=== PATIENT | male | born 1945 | race Caucasian/White ===

== ENCOUNTER → 2018-03-31 10:50 | Outpatient (CLI) | payer OTHER, SELFPAY ==
--- NOTE | 2018-03-31 10:57 | DI.RAD.S_ITS ---
PROCEDURE: XR CERVICAL SPINE 2V OR 3V INDICATIONS: neck vanessa TECHNIQUE: 3 view(s) of the cervical spine were acquired. COMPARISON: [facility], MR, C-SPINE WITHOUT CONTRAST, 06/30/2010, 10:37. [facility], MR, C-SPINE WITHOUT CONTRAST, 09/22/2012, 18:02. [facility], MR, C-SPINE WITHOUT CONTRAST, 03/24/2013, 20:44. FINDINGS: Bones: No fractures or dislocations to the C7 level. The lateral masses of C1 appear intact on the odontoid view. No suspicious bony lesions. There is degenerative disc disease, moderate to severe at C3-C4, C5-C6 and C6-C7. Soft tissues: No prevertebral soft tissue swelling. IMPRESSION: Moderate to severe degenerative disc disease. Dictated by: Kwaku Haskins M.D. on 03/31/2018 at 22:08 Transcribed by: NICHO on 03/31/2018 at 22:10 Approved by: Kwaku Haskins M.D. on 04/01/2018 at 7:37
== END ==
PROVIDERS: Family Provider Family Medicine; PCP Family Medicine; Visit Provider Internal Medicine
DX: M50.31 Other cervical disc degeneration, high cervical region (principal)
CPT/HCPCS: 72040

== ENCOUNTER → 2018-05-13 16:12 | Outpatient (CLI) | payer OTHER, SELFPAY ==
--- NOTE | 2018-05-13 16:15 | DI.RAD.S_ITS ---
PROCEDURE: XR CHEST 2V INDICATIONS: Shortness of breath, cough TECHNIQUE: 2 views of the chest were acquired. COMPARISON: [facility], , CHEST 2 VIEW, 05/18/2013, 15:43. FINDINGS: Surgical changes and devices: Midline sternotomy wires noted. Lungs and pleura: No pleural effusions or pneumothorax. There is increased hazy opacification obscuring the right hemidiaphragm and projecting posteriorly over the spine on lateral view. Mediastinum: Mediastinal contours are normal. Heart size is normal. Bones and chest wall: No suspicious bony abnormalities. Soft tissues appear unremarkable. IMPRESSION: Focal right lower lobe pulmonary opacities concerning for pneumonia. Findings discussed with ordering provider MOISES Renee at 5:04 PM on 05/13/[address] Deleon. Dictated by: Abdoul Deleon M.D. on 05/13/2018 at 16:57 Approved by: Abdoul Deleon M.D. on 05/13/2018 at 17:05
== END ==
PROVIDERS: Family Provider Family Medicine; PCP Family Medicine; Visit Provider Physician Assistant
DX: R05 Cough (principal); R06.02 Shortness of breath
CPT/HCPCS: 71046

== ENCOUNTER → 2018-05-26 15:05 | Outpatient (CLI) | payer OTHER, SELFPAY ==
--- NOTE | 2018-05-26 15:07 | DI.RAD.S_ITS ---
PROCEDURE: XR CHEST 2V INDICATIONS: 72-year-old male with cough. TECHNIQUE: 2 views of the chest were acquired. COMPARISON: [facility], CR, XR CHEST 2V, 05/13/2018, 16:07. FINDINGS: Surgical changes and devices: Sternotomy. Lungs and pleura: No pleural effusions or pneumothorax. Lungs are clear. Mediastinum: Mediastinal contours are normal. Heart size is normal. Bones and chest wall: No suspicious bony abnormalities. Soft tissues appear unremarkable. IMPRESSION: No acute cardiopulmonary disease. Dictated by: Kwaku Haskins M.D. on 05/26/2018 at 16:35 Approved by: Kwaku Haskins M.D. on 05/26/2018 at 16:35
== END ==
PROVIDERS: Family Provider Family Medicine; PCP Family Medicine; Visit Provider Family Medicine
DX: R05 Cough (principal)
CPT/HCPCS: 71046

== ENCOUNTER 2018-08-26 09:43 | Day surgery (SDC) | payer OTHER, SELFPAY ==
[2018-08-26 10:12] VITALS: BP 121/76; PULSE 72; RESP 16; TEMP 36.2; O2SAT 97; BMI 25.7
[2018-08-26] MEDS: SODIUM CHLORIDE 0.9% 1,000 ML 200 ML IV (10:26)
--- NOTE | 2018-08-26 11:04 | PM.HP.1 ---
History of Present Illness Date Patient Seen: 08/26/18 Time Patient Seen: 11:00 Chief complaint: colonoscopy 60599 Narrative: Patient here for screening colonoscopy. Last exam 5 years ago. Sister with colon cancer. Patient History Surgical History History of aortic valve replacement (Resolved) Status post appendectomy (Resolved) Family & Social History Social History: household members spouse Tobacco & Substance use: Smoking Status Current every day smoker Meds Home Medications Medication Instructions Recorded Confirmed Type Fish Oil (#OMEGA-3 FISH OIL) 1,200 mg PO Q DAY #0 04/06/11 05/26/18 History Ranitidine Hydrochloride 150 mg PO QDAY #0 04/06/11 05/26/18 History (RANITIDINE) ibuprofen 200 mg PO PRN #0 04/06/11 05/26/18 History lisinopril [Prinivil] 20 mg PO BID #180 tab 10/25/17 05/26/18 Rx cholecalciferol (vitamin D3) 5,000 unit PO QDAY #0 11/22/17 05/26/18 History magnesium 200 mg PO QDAY #0 11/22/17 05/26/18 History methylsulfonylmethane [MSM] 1,000 mg PO QDAY #0 11/22/17 05/26/18 History metoprolol succinate [Toprol XL] 12.5 mg PO BID #0 11/22/17 05/26/18 History varenicline 0.5 mg (11)-1 mg (42) See Label Instructions PO PER PKG 05/26/18 Rx tablets in a dose pack DIR #1 each tamsulosin [Flomax] 0.4 mg PO HS #90 cap 07/11/18 Rx Allergies Allergy/AdvReac Type Severity Reaction Status Date / Time No Known Allergies Allergy Verified 08/26/18 08:34 amoxicillin [From Augmentin] AdvReac Mild red, Verified 05/26/18 14:45 burning tongue clavulanic acid AdvReac Mild red, Verified 05/26/18 14:45 [From Augmentin] burning tongue Review of Systems Review of Systems All systems reviewed & are unremarkable except as noted in HPI and below Cardiovascular Comments: Has a known murmur related to his valve. Exam Vital Signs (past 8 hours): - 08/26/18 10:12 Temperature 97.2 F L Pulse Rate 72 Respiratory Rate 16 Blood Pressure 121/76 Pulse Oximetry 97 Oxygen Delivery Method Room Air Narrative Exam Narrative: Operative no apparent distress. Lungs are clear to auscultation no rales or rhonchi heart regular rate and rhythm. Patient has a loud 3 of 6 systolic murmur heard throughout the precordium. Best heard left base. Abdomen is soft nontender without mass. Alert oriented x3. Assessment & Plan Plan: Assessment/Plan Narrative: For screening colonoscopy. I have discussed the procedure and the rationale with the patient including risks of bleeding, perforation which would necessitate a major operation, failure to find remove all lesions and the potential to tattoo. They appeared to understand and wished to proceed.
--- NOTE | 2018-08-26 11:06 | PM.PREOP ---
Pre-operative Note Interval Note Pre-op Check: Yes History & Physical exam performed today by Physician Changes: No ASA Class (for procedural sedation): III
--- NOTE | 2018-08-26 11:22 | SUR.OPER ---
2 X 4 INCH BRUISE NOTED ON PATIENTS LEFT POSTERIOR THIGH.
[2018-08-26] MEDS: MIDAZOLAM 5 MG/5 ML VIAL IV (11:27)
[2018-08-26] MEDS: fentaNYL 250 MCG/5 ML INJ IV (11:28)
[2018-08-26 11:42] VITALS: BP 145/65; PULSE 72; RESP 12; TEMP 36.7; O2SAT 100
--- NOTE | 2018-08-26 11:43 | PM.OP.ENDO ---
Operative Date/Time/Diagnoses Date of procedure: 08/26/18 Time of procedure: 11:43 Pre-op diagnosis: Screening examination. Last exam 5 years ago. Sister has a history of colon cancer. Post-op diagnosis: same (Sigmoid diverticulosis. Scarring on old hemorrhoids.) Procedure & Clinicians Study performed: Colonoscopy Same procedure as scheduled: Yes Indications: Screening. Surgeon: Sav Jackson Procedure Notes SCOAP/Timeout: Performed Procedure in detail: The patient was placed in the left lateral decubitus position and underwent IV sedation directed by the surgeon consisting of fentanyl and Versed. Digital exam was remarkable for slight decrease in sphincter tone. I could not feel his prostate well. The scope was inserted and advanced through the rectum into the sigmoid, descending, transverse, and ascending colon. Pressure was applied and we made our way into the cecum. The cecum was reached identified by the ileocecal valve and the appendiceal opening. The appendiceal opening contained stool. The scope was gradually brought out. No Polyps were found. The scope ultimately was retroflexed in the rectum. The appearance was remarkable for some scarring on in internal hemorrhoids that were rather small. The scope was removed and the patient tolerated the procedure well. Prep was good Scope withdrawal time: 10 min Sedation minutes: 25 Findings: diverticulosis (Sigmoid) and internal hemorrhoids (Small) Specimen(s): none sent Complications: none Recommendations: Colonscopy in 5 years (Due to family history of colon cancer) Follow up: as needed Disposition: PACU
[2018-08-26 11:46] VITALS: BP 146/79; PULSE 72; RESP 18; O2SAT 98
[2018-08-26 11:52] VITALS: BP 137/54; PULSE 72; RESP 18; O2SAT 98
[2018-08-26 11:57] VITALS: BP 129/70; PULSE 80; RESP 16; O2SAT 98
[2018-08-26 12:05] VITALS: BP 131/77; PULSE 65; RESP 16; TEMP 36.8; O2SAT 97
== END 2018-08-26 12:18 | disposition home or self-care (01) ==
PROVIDERS: Family Provider Family Medicine; PCP Family Medicine; Visit Provider Specialist
PROC: 0DJD8ZZ Inspection of Lower Intestinal Tract, Via Natural or Artificial Opening Endoscopic (ICD-10-PCS; CPT 45378; principal; 2018-08-26 10:45)
DX: Z12.11 Encounter for screening for malignant neoplasm of colon (principal); K57.30 Diverticulosis of large intestine without perforation or abscess without bleeding; F17.210 Nicotine dependence, cigarettes, uncomplicated; Z80.0 Family history of malignant neoplasm of digestive organs; K64.8 Other hemorrhoids
CPT/HCPCS: G0105; 99152; 99153; J2250; J3010

== ENCOUNTER → 2018-12-12 09:11 | Outpatient (CLI) | payer OTHER, SELFPAY ==
[2018-12-12 10:58] LABS: Hemoglobin A1C% w Est Avg Glu 5.3 % (4.0-6.0)
[2018-12-12 11:01] LABS: Add Manual Diff / Slide Review NO; Basophils Absolute Auto 0 /uL (0-100); Basophils Percent Auto 0.7 % (0-2); Eosinophils Absolute Auto 300 /uL (0-450); Eosinophils Percent Auto 6.2 % (2-4); Hematocrit 43.3 % (41-53); Hemoglobin 14.7 g/dL (13.5-17.5); Lymphocytes Absolute Auto 1700 /uL (1100-4500); Lymphocytes Percent Auto 36.5 % (25-40); Mean Corpuscular Hemoglobin 31.7 PG (26-34); Mean Corpuscular Volume 93.3 fL (80-100); Monocytes Absolute Auto 400 /uL (0-900); Monocytes Percent Auto 8.4 % (3-14); Neutrophils Absolute Auto 2300 /uL (1500-7000); Neutrophils Percent Auto 48.2 % (50-75); Platelet Count 180 X10^3/uL (150-400); Red Blood Cell Count 4.64 X10^6/uL (4.5-5.9); Red Cell Distribution Width 13.3 % (11.6-14.8); White Blood Cell Count 4.7 X10^3/uL (4.5-11.0)
[2018-12-12 11:02] LABS: Alanine Aminotransferase 38 IU/L (21-72); Albumin 4.4 g/dL (3.5-5.0); Albumin Globulin Ratio 1.6 (1.0-2.8); Alkaline Phosphatase 50 U/L (38-126); Aspartate Aminotransferase 30 IU/L (17-59); BUN Creatinine Ratio 21.1 (6-22); Bilirubin Total 0.4 mg/dL (0.2-1.3); Blood Urea Nitrogen 19 mg/dL (9-20); Calcium 9.4 mg/dL (8.4-10.2); Carbon Dioxide 31 mmol/L (22-32); Chloride 101 mmol/L (98-107); Cholesterol 200 mg/dL (140-199); Estimated Glomerular Filt Rate > 60.0 mL/min (>60); Globulin 2.7 g/dL (1.7-4.1); Glucose 94 mg/dL (80-110); HDL Cholesterol 56 mg/dL (40-60); HEMOLYSIS < 15 (0-50); LDL Cholesterol Calculated 121 mg/dL (<100); Potassium 4.4 mmol/L (3.4-5.1); Sodium 140 mmol/L (137-145); Total Protein 7.1 g/dL (6.3-8.2); Triglycerides 115 mg/dL (35-150)
[2018-12-12 11:26] LABS: Prostate Specific Antigen Scrn 0.516 ng/mL (0.1-4.0)
[2018-12-12 11:47] LABS: Thyroid Stimulating Hormone 1.16 uIU/mL (0.47-4.68)
[2018-12-12 11:57] LABS: Creatinine Urine Random 113.6 mg/dL
[2018-12-12 12:02] LABS: Microalbumi Creatinin Ratio Ur 8.8 ug/mg CR (<30)
== END ==
PROVIDERS: PCP Family Medicine; Visit Provider Family Medicine
DX: E78.5 Hyperlipidemia, unspecified (principal); I10 Essential (primary) hypertension; R73.09 Other abnormal glucose; R89.9 Unspecified abnormal finding in specimens from other organs, systems and tissues; Z12.5 Encounter for screening for malignant neoplasm of prostate; Z13.29 Encounter for screening for other suspected endocrine disorder
CPT/HCPCS: 36415; 80053; 80061; 82043; 82570; 83036; 84443; 85025; G0103

== ENCOUNTER → 2019-06-15 14:50 | Outpatient (CLI) | payer OTHER, SELFPAY ==
[2019-06-15 15:59] LABS: Blood Urea Nitrogen 18 mg/dL (9-20); Calcium 9.4 mg/dL (8.4-10.2); Carbon Dioxide 26 mmol/L (22-32); Chloride 104 mmol/L (98-107); Estimated Glomerular Filt Rate > 60.0 mL/min (>60); Glucose 93 mg/dL (80-110); HEMOLYSIS < 15 (0-50); Potassium 4.4 mmol/L (3.4-5.1); Sodium 140 mmol/L (137-145)
== END ==
PROVIDERS: PCP Family Medicine; Visit Provider Internal Medicine Cardiovascular Disease
DX: I77.810 Thoracic aortic ectasia (principal); I10 Essential (primary) hypertension
CPT/HCPCS: 36415; 80048

== ENCOUNTER → 2019-06-16 10:41 | Outpatient (CLI) | payer OTHER, SELFPAY ==
--- NOTE | 2019-06-16 10:56 | DI.CT.S_ITS ---
PROCEDURE: CT ANGIO CHEST ABDOMEN INDICATIONS: Thoracic aortic ectasia TECHNIQUE: Precontrast 5 mm thick sections acquired from the lung apices to the iliac crests. After the administration of intravenous contrast, 2.5 mm thick sections again acquired from the lung apices to the iliac crests. 10 mm maximum intensity projection (MIP) oblique sagittal and coronal reformats were then acquired. For radiation dose reduction, the following was used: automated exposure control. COMPARISON: [facility], CT, ANGIOGRAPHY CHEST AND ABDOMEN, 09/18/2016, 14:46. FINDINGS: Image quality: Excellent. AORTA: The sinuses of Valsalva measure 37 mm short axis (normal range 25-45 mm). The sinotubular junction measures 35 mm short axis (normal range 22-38 mm). The mid ascending thoracic aorta measures 50 mm short axis (normal range 23-43 mm). The proximal aortic arch measures 40 mm short axis. The distal aortic arch measures 34 mm short axis. The proximal descending thoracic aorta measures 34 mm short axis. The distal descending thoracic aorta measures 31 mm short axis. The thoracoabdominal aorta at the diaphragmatic hiatus measures 28 mm short axis . The perirenal abdominal aorta and measures 25 mm short axis . The mid infrarenal abdominal aorta measures 25 mm short axis . The distal abdominal aorta measures 20 mm short axis. There is no evidence of aortic dissection nor significant stenosis. No evidence of intramural hematoma. CHEST: Lungs and pleura: No acute airspace opacities. Right posterior lung base scarring is present, as before. No change in 5 mm diameter subpleural nodule within the left upper lobe posteriorly. Subsegmental atelectasis within the inferolateral lingula. No pleural effusions or pneumothorax. Central and peripheral airways are patent and normal in caliber. Mediastinum: Heart size is normal. No pericardial effusion. No mediastinal or hilar adenopathy by size criteria. Central pulmonary arteries are normal in size. Esophagus is normal in caliber. No hiatal hernias. Bones and chest wall: Median sternotomy. No axillary adenopathy by size criteria. Thyroid gland is within normal limits. No suspicious bony lesions. No vertebral body compression fractures. ABDOMEN: Vasculature: Celiac trunk and mesenteric arteries are patent. Renal arteries are also patent. Solid organs: Liver is normal in size and enhancement. Gallbladder is within normal limits. Biliary system is non dilated. Pancreas enhances normally. Spleen is normal in size and enhancement. No adrenal nodules. Both kidneys are normal in size and enhancement, without hydronephrosis. Peritoneum and bowel: No free fluid or air. Bowel loops are normal in caliber and wall thickness. Nodes and vessels: No retroperitoneal or mesenteric adenopathy by size criteria. Inferior vena cava is normal in morphology. Bones: No suspicious bony lesions. No vertebral body compression fractures. Miscellaneous: No ventral hernias. IMPRESSION: 1. 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 2. No change in small subpleural nodule in the left upper lobe. Dictated by: Layne Martin M.D. on 06/16/2019 at 11:51 Approved by: Layne Martin M.D. on 06/16/2019 at 11:57
== END ==
PROVIDERS: Family Provider Family Medicine; PCP Family Medicine; Visit Provider Internal Medicine Cardiovascular Disease
DX: I77.810 Thoracic aortic ectasia (principal)
CPT/HCPCS: 71275; 74175; Q9967

== ENCOUNTER → 2019-09-04 09:45 | Outpatient (CLI) | payer OTHER, SELFPAY ==
[2019-09-04 10:45] LABS: Alanine Aminotransferase 34 IU/L (<50); Albumin 4.2 g/dL (3.5-5.0); Albumin Globulin Ratio 1.5 (1.0-2.8); Alkaline Phosphatase 56 U/L (38-126); Aspartate Aminotransferase 29 IU/L (17-59); BUN Creatinine Ratio 18.2 (6-22); Bilirubin Total 0.5 mg/dL (0.2-1.3); Blood Urea Nitrogen 20 mg/dL (9-20); Calcium 9.2 mg/dL (8.4-10.2); Carbon Dioxide 29 mmol/L (22-32); Chloride 106 mmol/L (98-107); Estimated Glomerular Filt Rate > 60.0 mL/min (>60); Globulin 2.8 g/dL (1.7-4.1); Glucose 107 mg/dL (80-110); HEMOLYSIS < 15 (0-50); Potassium 4.3 mmol/L (3.4-5.1); Sodium 141 mmol/L (137-145)
[2019-09-04 10:50] LABS: B Type Natriuretic Peptide 130 (<100)
[2019-09-04 13:16] LABS: Add Manual Diff / Slide Review NO; Basophils Absolute Auto 0 /uL (0-100); Basophils Percent Auto 0.4 % (0-2); Eosinophils Absolute Auto 300 /uL (0-450); Eosinophils Percent Auto 3.5 % (2-4); Hematocrit 42.1 % (41-53); Hemoglobin 14.6 g/dL (13.5-17.5); Lymphocytes Absolute Auto 1500 /uL (1100-4500); Lymphocytes Percent Auto 16.6 % (25-40); Mean Corpuscular HGB Conc 34.8 % (30-36); Mean Corpuscular Hemoglobin 32.4 PG (26-34); Mean Corpuscular Volume 93.3 fL (80-100); Monocytes Absolute Auto 1000 /uL (0-900); Monocytes Percent Auto 11.7 % (3-14); Neutrophils Absolute Auto 6100 /uL (1500-7000); Neutrophils Percent Auto 67.8 % (50-75); Platelet Count 174 X10^3/uL (150-400); Red Blood Cell Count 4.51 X10^6/uL (4.5-5.9); White Blood Cell Count 8.9 X10^3/uL (4.5-11.0)
== END ==
PROVIDERS: PCP Family Medicine; Visit Provider Family Medicine
DX: R06.02 Shortness of breath (principal); R60.9 Edema, unspecified; R07.2 Precordial pain
CPT/HCPCS: 36415; 80053; 83880; 85025

== ENCOUNTER → 2019-09-22 14:39 | Outpatient (CLI) | payer OTHER, SELFPAY ==
--- NOTE | 2019-09-22 14:40 | DI.ECHO.S_ITS ---
[place] +---------+ [facility] +---------+ : : [address] : : : : [id number] : : : : Phone: [phone]+ Echocardiogram Report + + :Name: SUMAN GARCIA Study Date: 09/22/2019 Height: 70.5 in: :[facility] Weight: 206 lb : : Gender: Male BSA: 2.1 m2 : :: 1945 Age: 74 yrs BP: 136/74 mmHg: :Reason For Study: SOB : :Ordering Physician: Dr. Humphrey : :[place] Performed By: Khushbu Savage : + + Interpretation Summary The left ventricle is normal in size. Left ventricular ejection fraction is estimated to be 70 +/- 5%. The right ventricle is normal in size and function. There is mild to moderate mitral regurgitation. Compared to the prior echo study, there has been no change in the severity of mitral regurgitation. There is a bioprosthetic aortic valve. The prosthetic aortic valve is well-seated. The peak aortic velocity is 3.4 m/sec. The aortic valve mean gradient is 25 mmHg. The peak aortic velocity on the previous exam was 3.02 m/sec. There is mild to moderate aortic regurgitation. Compared to the prior echo study, there has been no change in the severity of aortic regurgitation. The ascending aorta is severely enlarged. 5.0 cm in diameter.In January 05, 2019, ascending aortic diameter was 5.1 cm. In April 2016 it was 4.9 cm. Procedure: A two-dimensional transthoracic echocardiogram with color flow and Doppler was performed. The study quality was technically adequate. Comparison is made with the echocardiogram of 01/05/2019. The patient was in sinus bradycardia with heart rates between 53-65 bpm during the exam. The patient had frequent PACs during the exam. Left Ventricle: The left ventricle is normal in size. Left ventricular wall thickness is mildly increased. Proximal septal thickening is noted. There is no echo evidence for significant left ventricular outflow tract obstruction. There is no thrombus. Left ventricular ejection fraction is estimated to be 70 +/- 5%. There are no focal wall motion abnormalities. Diastolic parameters suggest a relaxation abnormality of the left ventricle, consistent with probable normal filling pressures. Right Ventricle: The right ventricle is normal in size and function. Atria: The left atrium is severely dilated. The left atrium has remained unchanged in size since the prior echo exam. The right atrium is mildly dilated. There is no Doppler evidence for an interatrial shunt. Mitral Valve: The mitral valve leaflets appear mildly thickened, but open well. There is mild mitral annular calcification. The mitral valve chordae are thickened and/or calcified. The mitral valve leaflets are mildly calcified. There is no mitral valve stenosis. There is mild to moderate mitral regurgitation. Compared to the prior echo study, there has been no change in the severity of mitral regurgitation. Aortic Valve: There is a bioprosthetic aortic valve. The prosthetic aortic valve is not well visualized. The prosthetic aortic valve is well-seated. The peak aortic velocity is 3.4 m/sec. The aortic valve mean gradient is 25 mmHg. The peak aortic velocity on the previous exam was 3.02 m/sec. There is mild to moderate aortic regurgitation. Compared to the prior echo study, there has been no change in the severity of aortic regurgitation. Tricuspid Valve: The tricuspid valve is normal in structure and function. There is a trace or physiologic amount of tricuspid regurgitation. The right ventricular systolic pressure is estimated to be at least 22 mmHg based on an estimated right atrial pressure of 3 mm Hg. Pulmonic Valve: The pulmonic valve is not well seen, but is grossly normal. There is a trace or physiologic amount of pulmonic regurgitation. Great Vessels: The ascending aorta is severely enlarged. The aortic arch could not be visualized. The IVC is of normal diameter and collapses greater than 50% with a sniff. This suggests a low right atrial pressure of 3 mm Hg. Pericardium/ Pleura There is no pericardial effusion. MMode/2D Measurements & Calculations LVIDd: 4.9 cm LVOT diam: 2.4 cm LVIDs: 2.7 cm asc Aorta Diam: 5.0 cm FS: 43.3 % EPSS: 0.60 cm IVSd: 0.98 cm LVPWd: 1.1 cm LV pagan. diameter/BSA (cm/m^2): 2.3 LV sys. diameter/BSA (cm/m^2): 1.3 LA A2 area: 27.1 cm2 RA long axis: 6.5 cm LA A4 area: 27.4 cm2 RA area: 24.1 cm2 LA length (vol): 6.1 cm RA vol: 75.8 ml LA vol: 103.4 ml RA : 35.7 ml/m2 LA vol index: 48.7 ml/m2 IVC diam: 1.4 cm RVD1 (basal): 3.1 cm RVD2 (mid): 2.3 cm TAPSE: 2.2 cm Doppler Measurements & Calculations Ao V2 max: 339.0 cm/sec AI P1/2t: 741.4 msec Ao V2 mean: 238.6 cm/sec AI dec slope: 152.7 cm/sec2 Ao max P.0 mmHg Ao mean P.9 mmHg Ao V2 VTI: 67.5 cm MV E max angel: 60.0 cm/sec TR max angel: 220.3 cm/sec MV A max angel: 68.4 cm/sec TR max P.4 mmHg MV E/A: 0.88 PA V2 max: 91.6 cm/sec Med Peak E' Angel: 6.0 cm/sec PA V2 mean: 59.5 cm/sec E/E' med: 10.0 PA mean P.7 mmHg Lat Peak E' Angel: 9.3 cm/sec PA Accel Time: 0.11 sec E/E' lat: 6.5 E/e' average: 8.2 MV dec time: 0.29 sec MV P1/2t: 84.1 msec MV P1/2t max angel: 60.1 cm/sec MVA(P1/2t): 2.6 cm2 Reading Physician:05:06 PM
== END ==
PROVIDERS: PCP Family Medicine; Visit Provider Family Medicine
DX: I08.0 Rheumatic disorders of both mitral and aortic valves (principal); I77.89 Other specified disorders of arteries and arterioles; R06.02 Shortness of breath; R07.2 Precordial pain; R60.9 Edema, unspecified; Z95.2 Presence of prosthetic heart valve
CPT/HCPCS: 93306

== ENCOUNTER → 2020-02-12 11:06 | Outpatient (CLI) | payer OTHER, SELFPAY ==
[2020-02-12 13:49] LABS: NT-proBNP (BNP-Adult 18+) 230 pg/mL (<125)
== END ==
PROVIDERS: PCP Family Medicine; Referring Provider Family Medicine; Visit Provider Family Medicine
DX: R06.02 Shortness of breath (principal); R60.9 Edema, unspecified
CPT/HCPCS: 36415; 83880

== ENCOUNTER → 2020-08-29 08:46 | Outpatient (CLI) | payer OTHER, SELFPAY ==
[2020-08-29 09:58] LABS: Add Manual Diff / Slide Review NO; Basophils Absolute Auto 100 /uL (0-100); Basophils Percent Auto 1.1 % (0-2); Eosinophils Absolute Auto 200 /uL (0-450); Eosinophils Percent Auto 4.2 % (2-4); Hemoglobin 14.6 g/dL (13.5-17.5); Lymphocytes Absolute Auto 1300 /uL (1100-4500); Lymphocytes Percent Auto 26.6 % (25-40); Mean Corpuscular HGB Conc 33.9 % (30-36); Mean Corpuscular Volume 94.4 fL (80-100); Monocytes Absolute Auto 500 /uL (0-900); Monocytes Percent Auto 9.5 % (3-14); Neutrophils Absolute Auto 2800 /uL (1500-7000); Neutrophils Percent Auto 58.6 % (50-75); Platelet Count 154 X10^3/uL (150-400); Red Blood Cell Count 4.55 X10^6/uL (4.5-5.9); Red Cell Distribution Width 13.1 % (11.6-14.8); White Blood Cell Count 4.8 X10^3/uL (4.5-11.0)
[2020-08-29 10:32] LABS: Alanine Aminotransferase 39 IU/L (<50); Albumin 4.1 g/dL (3.5-5.0); Albumin Globulin Ratio 1.6 (1.0-2.8); Alkaline Phosphatase 39 U/L (38-126); Aspartate Aminotransferase 36 IU/L (17-59); BUN Creatinine Ratio 22.5 (6-22); Bilirubin Total 0.7 mg/dL (0.2-1.3); Blood Urea Nitrogen 20 mg/dL (9-20); Calcium 9.1 mg/dL (8.4-10.2); Carbon Dioxide 27 mmol/L (22-32); Chloride 107 mmol/L (98-107); Cholesterol 189 mg/dL (140-199); Estimated Glomerular Filt Rate > 60.0 mL/min (>60); Globulin 2.5 g/dL (1.7-4.1); Glucose 106 mg/dL (80-110); HDL Cholesterol 63 mg/dL (40-60); HEMOLYSIS < 15 (0-50); LDL Cholesterol Calculated 103 mg/dL (<100); Potassium 4.7 mmol/L (3.4-5.1); Sodium 139 mmol/L (137-145); Total Protein 6.6 g/dL (6.3-8.2); Triglycerides 115 mg/dL (35-150)
[2020-08-29 11:00] LABS: Prostate Specific Antigen Scrn 0.496 ng/mL (0.1-4.0)
== END ==
PROVIDERS: PCP Family Medicine; Referring Provider Family Medicine; Visit Provider Family Medicine
DX: I10 Essential (primary) hypertension (principal); I50.9 Heart failure, unspecified; Z12.5 Encounter for screening for malignant neoplasm of prostate; Z13.220 Encounter for screening for lipoid disorders; Z13.6 Encounter for screening for cardiovascular disorders
CPT/HCPCS: 36415; 80053; 80061; 85025; G0103

== ENCOUNTER → 2020-10-28 13:30 | Outpatient (CLI) | payer OTHER, SELFPAY ==
--- NOTE | 2020-10-28 14:50 | DI.RAD.S_ITS ---
PROCEDURE: XR KUB INDICATIONS: Right flank pain r/o renal calculi TECHNIQUE: One view of the abdomen acquired. COMPARISON: [facility] [place], CR, XR LUMBAR SPINE 2 OR 3 VIEWS, 07/04/2018, 13:37. [facility], CT, CT ANGIO CHEST ABDOMEN, 06/16/2019, 10:49. FINDINGS: Surgical changes and devices: Stable spine fixation devices on the right and at the midline are again noted. No sign of device loosening or disruption.. Bowel: Bowel gas pattern is normal. Soft tissues: No suspicious abdominal calcifications. Visualized solid organ contours appear normal in size. Bones: No suspicious bony lesions. IMPRESSION: Postoperative changes of the spine stabilization procedure are stable over time. No urinary tract stone is found. Dictated by: Faizan Grimes M.D. on 10/28/2020 at 16:33 Approved by: Faizan Grimes M.D. on 10/28/2020 at 16:34
[2020-10-28 15:22] LABS: Add Manual Diff / Slide Review NO; Basophils Absolute Auto 100 /uL (0-100); Basophils Percent Auto 0.8 % (0-2); Eosinophils Absolute Auto 200 /uL (0-450); Hematocrit 44.9 % (41-53); Hemoglobin 15.3 g/dL (13.5-17.5); Lymphocytes Absolute Auto 2000 /uL (1100-4500); Lymphocytes Percent Auto 28.9 % (25-40); Mean Corpuscular Volume 94.2 fL (80-100); Monocytes Absolute Auto 500 /uL (0-900); Monocytes Percent Auto 7.3 % (3-14); Neutrophils Absolute Auto 4000 /uL (1500-7000); Platelet Count 155 X10^3/uL (150-400); Red Blood Cell Count 4.77 X10^6/uL (4.5-5.9); Red Cell Distribution Width 12.9 % (11.6-14.8); White Blood Cell Count 6.8 X10^3/uL (4.5-11.0)
[2020-10-28 15:34] LABS: Alanine Aminotransferase 61 IU/L (<50); Albumin 4.5 g/dL (3.5-5.0); Albumin Globulin Ratio 1.6 (1.0-2.8); Alkaline Phosphatase 42 U/L (38-126); Aspartate Aminotransferase 58 IU/L (17-59); BUN Creatinine Ratio 20.4 (6-22); Bilirubin Total 0.6 mg/dL (0.2-1.3); Blood Urea Nitrogen 21 mg/dL (9-20); Calcium 9.4 mg/dL (8.4-10.2); Carbon Dioxide 31 mmol/L (22-32); Chloride 101 mmol/L (98-107); Estimated Glomerular Filt Rate > 60.0 mL/min (>60); Globulin 2.9 g/dL (1.7-4.1); Glucose 98 mg/dL (80-110); HEMOLYSIS < 15 (0-50); Lipase 46 U/L (23-300); Potassium 4.9 mmol/L (3.4-5.1); Sodium 137 mmol/L (137-145); Total Protein 7.4 g/dL (6.3-8.2)
== END ==
PROVIDERS: PCP Family Medicine; Visit Provider Nurse Practitioner
DX: N34.3 Urethral syndrome, unspecified (principal); R10.9 Unspecified abdominal pain
CPT/HCPCS: 36415; 74018; 80053; 83690; 85025; 87086

== ENCOUNTER → 2020-12-23 15:48 | Outpatient (CLI) | payer OTHER, SELFPAY ==
--- NOTE | 2020-12-23 15:49 | DI.RAD.S_ITS ---
PROCEDURE: XR CHEST 2V INDICATIONS: dyspnea TECHNIQUE: 2 views of the chest were acquired. COMPARISON: [facility], CR, XR CHEST 2V, 05/26/2018, 14:46. FINDINGS: Surgical changes and devices: Sternotomy wires Scattered subsegmental atelectasis and/or scarring. No focal consolidation. No pleural effusions or pneumothorax. Mediastinum: Mediastinal contours are normal. Heart size is normal. Bones and chest wall: No suspicious bony abnormalities. Soft tissues appear unremarkable. IMPRESSION: No acute disease. Dictated by: Todd Estrada M.D. on 12/23/2020 at 16:55 Approved by: Todd Estrada M.D. on 12/23/2020 at 16:55
== END ==
PROVIDERS: PCP Internal Medicine; Referring Provider Internal Medicine; Visit Provider Internal Medicine
DX: J44.9 Chronic obstructive pulmonary disease, unspecified (principal); R06.00 Dyspnea, unspecified
CPT/HCPCS: 71046

== ENCOUNTER → 2021-01-03 12:53 | Outpatient (CLI) | payer OTHER, SELFPAY ==
--- NOTE | 2021-01-03 12:59 | DI.ECHO.S_ITS ---
[place] +---------+ Hospital +---------+ : : [address] : [address] : : : : [id number] : : : : Phone: [phone]+ Echocardiogram Report + + :Name: SUMAN GARCIA Study Date: 01/03/2021 Height: 70 in : :[facility] : Weight: 205 lb : : Gender: Male BSA: 2.1 m2 : :: 1945 Age: 75 yrs BP: 168/78 mmHg: :Reason For Study: Aortic, Ascending Aneurysm : :Ordering Physician: Connie : :Giulinaa Caldwlel Performed By: Dragan Urbano : :Referring: CONNIE CALDWELL : + + Interpretation Summary The left ventricle is normal in size. There is mild concentric left ventricular hypertrophy. Left ventricular ejection fraction is estimated to be 70 +/- 5%. There has been no significant change in LV EF since the previous exam. The right ventricle is normal in size and function. There is a bioprosthetic aortic valve. The prosthetic aortic valve is well-seated. The peak aortic velocity is 3.42 m/sec. The peak aortic velocity on the previous exam was 3.4 m/sec. The aortic valve mean gradient is 24.5 mmHg. There is moderate aortic regurgitation. There has been no significant change since the previous study. The ascending aorta is severely enlarged. 4.9 cm in diameter. In September 2019 it was about 5.0 cm.In January 05, 2019, ascending aortic diameter was 5.1 cm. In April 2016 it was 4.9 cm. The IVC is of normal diameter and collapses greater than 50% with a sniff. This suggests a low right atrial pressure of 3 mm Hg. Procedure: A two-dimensional transthoracic echocardiogram with color flow and Doppler was performed. The study quality was technically adequate. Comparison is made with the echocardiogram of 09/22/2019. The patient was in sinus rhythm with heart rates between 53-57 bpm during the exam. Left Ventricle: The left ventricle is normal in size. There is mild concentric left ventricular hypertrophy. There is no thrombus. Left ventricular ejection fraction is estimated to be 70 +/- 5%. There has been no significant change since the previous exam. There are no focal wall motion abnormalities. MV E/A: 2.9 Med Peak E' Angel: 7.1 cm/sec E/E' med: 15.1. Right Ventricle: The right ventricle is normal in size and function. Atria: The left atrium is severely dilated. The left atrium has remained unchanged in size since the prior echo exam. The right atrium is mildly dilated. There is no Doppler evidence for an interatrial shunt. Mitral Valve: There is mild mitral annular calcification. The mitral valve leaflets are mildly calcified. The mitral valve leaflets appear mildly thickened, but open well. There is mild mitral regurgitation. Aortic Valve: There is a bioprosthetic aortic valve. The prosthetic aortic valve is well-seated. The peak aortic velocity is 3.42 m/sec. The peak aortic velocity on the previous exam was 3.4 m/sec. The aortic valve mean gradient is 24.5 mmHg. There is moderate aortic regurgitation. There has been no significant change since the previous study. Tricuspid Valve: The tricuspid valve is normal. Pulmonary artery pressures cannot be estimated because of the lack of a measurable TR jet velocity but the IVC suggests a CVP of around 3 mmHg. There is trace tricuspid regurgitation. Pulmonic Valve: The pulmonic valve is not well seen, but is grossly normal. There is trace pulmonic regurgitation. Great Vessels: The aortic root is not well visualized. The ascending aorta is severely enlarged. The IVC is of normal diameter and collapses greater than 50% with a sniff. This suggests a low right atrial pressure of 3 mm Hg. Pericardium/ Pleura There is no pericardial effusion. There is no pleural effusion. MMode/2D Measurements & Calculations LVIDd: 5.4 cm asc Aorta Diam: 4.9 cm LVIDs: 3.3 cm FS: 39.8 % IVSd: 1.2 cm LVPWd: 1.2 cm LV pagna. diameter/BSA (cm/m^2): 2.6 LV sys. diameter/BSA (cm/m^2): 1.5 LA A2 area: 26.8 cm2 RA area: 21.1 cm2 LA A4 area: 27.3 cm2 IVC diam: 2.1 cm LA length (vol): 6.4 cm LA vol: 97.6 ml LA vol index: 46.3 ml/m2 RVD1 (basal): 3.3 cm TAPSE: 1.9 cm Doppler Measurements & Calculations Ao V2 max: 342.2 cm/sec LVOT Max Angel: 115.0 cm/sec Ao V2 mean: 230.3 cm/sec LV V1 max P.3 mmHg Ao max P.9 mmHg LV V1 VTI: 29.2 cm Ao mean P.5 mmHg sev ratio: 0.38 Ao V2 VTI: 77.6 cm AI P1/2t: 460.7 msec AI dec slope: 263.4 cm/sec2 MV E max angel: 107.6 cm/sec PA V2 max: 87.2 cm/sec MV A max angel: 36.6 cm/sec PA V2 mean: 65.0 cm/sec MV E/A: 2.9 PA mean P.8 mmHg Med Peak E' Angel: 7.1 cm/sec PA pr(Accel): 37.0 mmHg E/E' med: 15.1 Lat Peak E' Angel: 10.1 cm/sec E/E' lat: 10.7 E/e' average: 12.9 MV dec time: 0.19 sec Reading Physician:03:15 PM
== END ==
PROVIDERS: PCP Internal Medicine; Referring Provider Internal Medicine Cardiovascular Disease; Visit Provider Internal Medicine Cardiovascular Disease
DX: I77.810 Thoracic aortic ectasia (principal); I08.0 Rheumatic disorders of both mitral and aortic valves; Z95.2 Presence of prosthetic heart valve
CPT/HCPCS: 93306

== ENCOUNTER → 2021-01-09 12:53 | Outpatient (CLI) | payer OTHER, SELFPAY ==
[2021-01-09 14:27] LABS: COVID19 -Nasal RAPID Negative (Negative)
== END ==
PROVIDERS: PCP Internal Medicine; Referring Provider Internal Medicine; Visit Provider Internal Medicine
DX: Z20.822 Contact with and (suspected) exposure to COVID-19 (principal)
CPT/HCPCS: 87635; C9803

== ENCOUNTER → 2021-01-10 12:58 | Outpatient (CLI) | payer OTHER, SELFPAY ==
--- NOTE | 2021-01-15 09:06 | PM.PFT.1 ---
Pulmonary Function Test Referral & Results Date Patient Seen: 01/10/21 Requesting provider: David Maldonado Results: The spirometry demonstrates an FVC of 3.02 L which is 60% of predicted. The FEV1 was measured at 1.80 L which is 55% of predicted. The FEV1/FVC ratio was 59 which is 81% of predicted. Following the administration of bronchodilator there was a 26% improvement in FEF 25-75%. Lung volumes show an SVC of 3.39 L which is 73% of predicted. The diffusing capacity was measured at 23.30 which is 69% of predicted. No hemoglobin value was provided, so no correction for potential anemia could be made, if appropriate. The maximum voluntary ventilation was reduced slightly Interpretation: This study demonstrates moderate obstructive lung disease based on reduction FEV1 although FEV1/FVC ratio is somewhat preserved. There is minimal evidence of benefit following bronchodilator primarily in small airway flow based on improvement in FEF 25-75% as above. Shape of flow volume loop also supports obstructive lung disease There is minimal reduction in lung volumes suggesting minimal restrictive lung disease There is also a reduction diffusing capacity suggesting element of disease at the capillary alveolar level unless patient is anemic as above Clinical correlation suggested
== END ==
PROVIDERS: PCP Internal Medicine; Referring Provider Internal Medicine; Visit Provider Internal Medicine
DX: R06.02 Shortness of breath (principal); J98.8 Other specified respiratory disorders; Z87.891 Personal history of nicotine dependence
CPT/HCPCS: 94060; 94726; 94729

== ENCOUNTER → 2021-02-13 08:14 | Outpatient (CLI) | payer OTHER, SELFPAY ==
[2021-02-13 09:37] LABS: Alanine Aminotransferase 54 IU/L (<50); Albumin 4.3 g/dL (3.5-5.0); Albumin Globulin Ratio 1.7 (1.0-2.8); Alkaline Phosphatase 40 U/L (38-126); Aspartate Aminotransferase 45 IU/L (17-59); Bilirubin Total 0.3 mg/dL (0.2-1.3); Blood Urea Nitrogen 25 mg/dL (9-20); Calcium 9.3 mg/dL (8.4-10.2); Carbon Dioxide 29 mmol/L (22-32); Chloride 103 mmol/L (98-107); Cholesterol 210 mg/dL (140-199); Estimated Glomerular Filt Rate > 60.0 mL/min (>60); Globulin 2.6 g/dL (1.7-4.1); Glucose 106 mg/dL (80-110); HDL Cholesterol 56 mg/dL (40-60); HEMOLYSIS < 15 (0-50); LDL Cholesterol Calculated 129 mg/dL (<100); Potassium 4.8 mmol/L (3.4-5.1); Sodium 138 mmol/L (137-145); Total Protein 6.9 g/dL (6.3-8.2); Triglycerides 126 mg/dL (35-150)
== END ==
PROVIDERS: PCP Internal Medicine; Referring Provider Internal Medicine Cardiovascular Disease; Visit Provider Internal Medicine Cardiovascular Disease
DX: I10 Essential (primary) hypertension (principal)
CPT/HCPCS: 36415; 80053; 80061

== ENCOUNTER → 2021-05-14 08:03 | Outpatient (CLI) | payer OTHER, SELFPAY ==
[2021-05-14 09:05] LABS: Cholesterol 194 mg/dL (140-199); HDL Cholesterol 55 mg/dL (40-60); LDL Cholesterol Calculated 118 mg/dL (<100); Triglycerides 104 mg/dL (35-150)
== END ==
PROVIDERS: PCP Internal Medicine; Referring Provider Nurse Practitioner; Visit Provider Nurse Practitioner
DX: E78.5 Hyperlipidemia, unspecified (principal); I10 Essential (primary) hypertension
CPT/HCPCS: 36415; 80061

== ENCOUNTER → 2021-08-29 09:39 | Outpatient (CLI) | payer OTHER, SELFPAY ==
[2021-08-29 10:44] LABS: Add Manual Diff / Slide Review NO; Basophils Absolute Auto 100 /uL (0-100); Basophils Percent Auto 1.2 % (0-2); Eosinophils Absolute Auto 300 /uL (0-450); Eosinophils Percent Auto 5.2 % (2-4); Hematocrit 40.5 % (41-53); Hemoglobin 13.9 g/dL (13.5-17.5); Lymphocytes Absolute Auto 1300 /uL (1100-4500); Lymphocytes Percent Auto 27.2 % (25-40); Mean Corpuscular HGB Conc 34.3 % (30-36); Mean Corpuscular Hemoglobin 31.8 PG (26-34); Mean Corpuscular Volume 92.6 fL (80-100); Monocytes Absolute Auto 500 /uL (0-900); Monocytes Percent Auto 9.9 % (3-14); Neutrophils Absolute Auto 2700 /uL (1500-7000); Neutrophils Percent Auto 56.5 % (50-75); Platelet Count 186 X10^3/uL (150-400); Red Blood Cell Count 4.37 X10^6/uL (4.5-5.9); White Blood Cell Count 4.8 X10^3/uL (4.5-11.0)
[2021-08-29 11:43] LABS: Alanine Aminotransferase 59 IU/L (<50); Albumin 4.3 g/dL (3.5-5.0); Albumin Globulin Ratio 1.7 (1.0-2.8); Alkaline Phosphatase 37 U/L (38-126); Aspartate Aminotransferase 46 IU/L (17-59); BUN Creatinine Ratio 15.6 (6-22); Bilirubin Total 0.5 mg/dL (0.2-1.3); Blood Urea Nitrogen 22 mg/dL (9-20); Calcium 9.2 mg/dL (8.4-10.2); Carbon Dioxide 30 mmol/L (22-32); Chloride 105 mmol/L (98-107); Globulin 2.6 g/dL (1.7-4.1); Glucose 98 mg/dL (80-110); HEMOLYSIS < 15 (0-50); Potassium 4.9 mmol/L (3.4-5.1); Sodium 138 mmol/L (137-145); Total Protein 6.9 g/dL (6.3-8.2)
[2021-08-29 11:46] LABS: NT-proBNP (BNP-Adult 18+) 509 pg/mL (<450)
[2021-08-29 12:07] LABS: Thyroid Stimulating Hormone 0.741 uIU/mL (0.47-4.68)
== END ==
PROVIDERS: PCP Internal Medicine; Referring Provider Internal Medicine Cardiovascular Disease; Visit Provider Internal Medicine Cardiovascular Disease
DX: R06.00 Dyspnea, unspecified (principal); I10 Essential (primary) hypertension; R07.89 Other chest pain
CPT/HCPCS: 36415; 80053; 83880; 84443; 85025

== ENCOUNTER → 2021-09-17 12:33 | Outpatient (CLI) | payer OTHER, SELFPAY ==
--- NOTE | 2021-09-17 12:36 | DI.RAD.S_ITS ---
PROCEDURE: XR CHEST 2V INDICATIONS: chest pain/cough TECHNIQUE: 2 views of the chest were acquired. COMPARISON: [facility], CR, XR CHEST 2V, 12/23/2020, 15:59. FINDINGS: Surgical changes and devices: Median sternotomy wires. Lungs and pleura: Lungs are clear. No pleural effusions or pneumothorax. Mediastinum: Mediastinal contours are normal. Heart size is normal. Bones and chest wall: No suspicious bony abnormalities. Soft tissues appear unremarkable. IMPRESSION: No acute cardiopulmonary disease process. Dictated by: Brittni Disla MD, PhD on 09/17/2021 at 13:20 Approved by: Brittni Disla MD, PhD on 09/17/2021 at 13:28
== END ==
PROVIDERS: PCP Internal Medicine; Referring Provider Internal Medicine; Visit Provider Internal Medicine
DX: R05.9 Cough, unspecified (principal); R07.9 Chest pain, unspecified; J44.9 Chronic obstructive pulmonary disease, unspecified
CPT/HCPCS: 71046

== ENCOUNTER → 2022-01-30 08:26 | Outpatient (CLI) | payer OTHER, SELFPAY ==
[2022-01-30 09:17] LABS: INR 3.5 (0.9-1.3); Prothrombin Time 40.3 SECONDS (10.1-12.7)
== END ==
PROVIDERS: PCP Internal Medicine; Referring Provider Internal Medicine; Visit Provider Internal Medicine
DX: Z79.01 Long term (current) use of anticoagulants (principal); Z95.3 Presence of xenogenic heart valve
CPT/HCPCS: 36415; 85610

== ENCOUNTER → 2022-05-04 14:04 | Outpatient (CLI) | payer OTHER, SELFPAY ==
[2022-05-04 15:07] LABS: INR 3.3 (0.9-1.3); Prothrombin Time 37.9 SECONDS (10.1-12.7)
== END ==
PROVIDERS: PCP Internal Medicine; Referring Provider Student in an Organized Health Care Education/Training Program; Visit Provider Student in an Organized Health Care Education/Training Program
DX: Z79.01 Long term (current) use of anticoagulants (principal)
CPT/HCPCS: 36415; 85610

== ENCOUNTER → 2022-05-14 14:45 | Outpatient (CLI) | payer OTHER, SELFPAY ==
[2022-05-14 16:33] LABS: INR 2.9 (0.9-1.3); Prothrombin Time 33.2 SECONDS (10.1-12.7)
== END ==
PROVIDERS: PCP Internal Medicine; Referring Provider Internal Medicine; Visit Provider Internal Medicine
DX: Z79.01 Long term (current) use of anticoagulants (principal)
CPT/HCPCS: 36415; 85610

== ENCOUNTER → 2022-07-31 15:13 | Outpatient (CLI) | payer OTHER, SELFPAY ==
[2022-07-31 17:00] LABS: INR 1.1 (0.9-1.3); Prothrombin Time 12.7 SECONDS (10.1-12.7)
== END ==
PROVIDERS: PCP Internal Medicine; Referring Provider Internal Medicine; Visit Provider Internal Medicine
DX: Z79.01 Long term (current) use of anticoagulants (principal)
CPT/HCPCS: 36415; 85610

== ENCOUNTER → 2023-09-08 15:25 | Outpatient (CLI) | payer MEDICARE, OTHER, SELFPAY ==
[2023-09-08 16:03] LABS: Hematocrit 41.9 % (41-53); Hemoglobin 14.3 g/dL (13.5-17.5); Mean Corpuscular HGB Conc 34.2 % (30-36); Mean Corpuscular Volume 93.7 fL (80-100); Platelet Count 167 X10^3/uL (150-400); Red Blood Cell Count 4.47 X10^6/uL (4.5-5.9); Red Cell Distribution Width 13.6 % (11.6-14.8); White Blood Cell Count 5.9 X10^3/uL (4.5-11.0)
[2023-09-08 16:47] LABS: Thyroid Stimulating Hormone 0.711 uIU/mL (0.47-4.68)
[2023-09-08 17:32] LABS: Alanine Aminotransferase 42 IU/L (<50); Albumin 4.3 g/dL (3.5-5.0); Albumin Globulin Ratio 1.5 (1.0-2.8); Alkaline Phosphatase 44 U/L (38-126); Aspartate Aminotransferase 38 IU/L (17-59); BUN Creatinine Ratio 17.8 (6-22); Bilirubin Total 0.5 mg/dL (0.2-1.3); Blood Urea Nitrogen 18 mg/dL (9-20); Calcium 9.5 mg/dL (8.4-10.2); Carbon Dioxide 27 mmol/L (22-32); Chloride 105 mmol/L (98-107); Estimated Glomerular Filt Rate > 60 mL/min (>60); Globulin 2.9 g/dL (1.7-4.1); Glucose 102 mg/dL (80-110); HEMOLYSIS < 15 (0-50); Magnesium 1.9 mg/dL (1.6-2.3); Potassium 4.5 mmol/L (3.4-5.1); Sodium 138 mmol/L (137-145); Total Protein 7.2 g/dL (6.3-8.2)
== END ==
PROVIDERS: PCP Internal Medicine; Referring Provider Internal Medicine Cardiovascular Disease; Visit Provider Internal Medicine Cardiovascular Disease
DX: I10 Essential (primary) hypertension (principal)
CPT/HCPCS: 36415; 80053; 83735; 84443; 85027

== ENCOUNTER → 2023-10-04 07:37 | Outpatient (CLI) | payer MEDICARE, OTHER, SELFPAY ==
[2023-10-04 08:34] LABS: Cholesterol 184 mg/dL (140-199); HDL Cholesterol 56 mg/dL (40-60); LDL Cholesterol Calculated 110 mg/dL (<100); Triglycerides 91 mg/dL (35-150)
[2023-10-04 09:01] LABS: Prostate Specific Antigen Scrn 0.237 ng/mL (0.1-4.0)
[2023-10-04 09:20] LABS: Vitamin B12 823 pg/mL (239-931)
[2023-10-04 11:26] LABS: HEMOLYSIS < 15 (0-50); Iron 72 ug/dL (49-181)
[2023-10-04 11:37] LABS: Percent Iron Saturation 22 % (20-50); Total Iron Binding Capacity 330 ug/dL (261-462); Transferrin 272 mg/dL (206-381)
[2023-10-04 15:17] LABS: Creatinine Urine Random 148.2 mg/dL
[2023-10-04 15:21] LABS: Microalbumi Creatinin Ratio Ur 37.1 ug/mg CR (<30); Microalbumin Urine Random 5.5 mg/dL (0-1.6)
[2023-10-04 16:14] LABS: Hep C Virus Ab w/Reflex Quant NEGATIVE s/c (NEGATIVE)
[2023-10-07 05:17] LABS: Testosterone Fr+Wkly bound 62.2 ng/dL (40.0-250.0)
== END ==
PROVIDERS: PCP Nurse Practitioner; Referring Provider Nurse Practitioner; Visit Provider Nurse Practitioner
DX: I10 Essential (primary) hypertension (principal); Z12.5 Encounter for screening for malignant neoplasm of prostate; R53.83 Other fatigue; E78.2 Mixed hyperlipidemia; Z11.59 Encounter for screening for other viral diseases
CPT/HCPCS: 36415; 80061; 82043; 82570; 82607; 83540; 83550; 84403; 86803; G0103

== ENCOUNTER → 2023-10-07 13:24 | Outpatient (CLI) | payer MEDICARE, OTHER, SELFPAY ==
--- NOTE | 2023-10-07 13:25 | DI.CT.S_ITS ---
PROCEDURE: CT LUNG LOW DOSE SCREENING INDICATIONS: Smoking cessation <5 years ago TECHNIQUE: Noncontrast 2.0-2.5 mm thick sections acquired from the pulmonary apices to the posterior costophrenic angles. 7 mm thick axial MIP, and 5 mm coronal and sagittal reformats were then acquired. For radiation dose reduction, the following was used: automated exposure control, adjustment of mA and/or kV according to patient size. COMPARISON: None. FINDINGS: Image quality: Diagnostic. Lower Neck: No enlarged lymph nodes. Thyroid: No suspicious thyroid nodule Axillae: No enlarged lymph nodes. Chest Wall: Unremarkable. Bones: Mediastinum wires.. Lungs and Pleura: No pneumothorax or pleural effusions. 4 millimeter solid nodule in the right upper lobe (79/3) A few additional juxtapleural solid nodules are also seen smaller than 5 millimeters in size. Heart: Heart size is normal. No pericardial effusion. Atherosclerotic calcifications of the aorta Thoracic Vessels: The aorta and pulmonary arteries demonstrate normal size. Mediastinum and [place]: No enlarged lymph nodes. Esophagus: No wall thickening. No hiatal hernia. Upper Abdomen: Visualized upper abdomen solid organs and bowel loops appear normal. IMPRESSION: Benign-appearing pulmonary lymph node LUNG-RADS 2, BENIGN continue low-dose CT of the chest in 12 months if eligible Clinically Significant Non-pulmonary Findings: None Dictated by: Sav Gongora M.D. on 10/07/2023 at 15:47 Approved by: Sav Gongora M.D. on 10/07/2023 at 15:57
== END ==
LOC: CT 13:25
PROVIDERS: PCP Nurse Practitioner; Referring Provider Nurse Practitioner; Visit Provider Nurse Practitioner
DX: R91.8 Other nonspecific abnormal finding of lung field (principal); Z12.2 Encounter for screening for malignant neoplasm of respiratory organs; R59.0 Localized enlarged lymph nodes; Z87.891 Personal history of nicotine dependence
CPT/HCPCS: 71271

== ENCOUNTER → 2023-12-13 10:07 | Outpatient (CLI) | payer MEDICARE, OTHER, SELFPAY ==
--- NOTE | 2023-12-13 10:09 | DI.MG.S_ITS ---
MALE BILATERAL DIGITAL DIAGNOSTIC MAMMOGRAM 3D/2D: 12/13/2023 CLINICAL: Right breast pain. No prior exams were available for comparison. There is mild unilateral right-sided gynecomastia in the retroareolar region corresponding to the palpable abnormality. No suspicious mass is identified. No significant masses, calcifications, or other findings are seen in either breast. IMPRESSION: BENIGN Unilateral mild right gynecomastia is seen that corresponds to the patient's reported palpable anormality. Recommend clinical correlation and workup for causes of gynecomastia. There is no mammographic evidence of malignancy. This exam was interpreted at Station ID: [id number]. NOTE: For mammograms, a report in lay terms will be sent to the patient. Approximately 15% of breast malignancies will not be visualized mammographically. In the management of a palpable breast mass, a negative mammogram must not discourage biopsy of a clinically suspicious lesion. Electronically Signed By: Frankie Barton M.D. ar/:12/13/2023 21:45:01 letter sent: Male Normal Exam ACR BI-RADS Category 2: Benign Finding(s) 3342F
== END ==
PROVIDERS: PCP Nurse Practitioner; Referring Provider Nurse Practitioner; Visit Provider Nurse Practitioner
DX: N62 Hypertrophy of breast (principal); N64.4 Mastodynia
CPT/HCPCS: 77066; G0279

== ENCOUNTER → 2024-09-15 09:43 | Outpatient (CLI) | payer MEDICARE, OTHER, SELFPAY ==
--- NOTE | 2024-09-15 09:49 | DI.NM.S_ITS ---
PROCEDURE: NM JESS PERF SPECT REST & STR Rest and exercise myocardial perfusion SPECT with gated imaging and ejection fraction RADIOPHARMACEUTICAL: 11.8 mCi Tc-99m sestamibi IV at rest and 24.6 mCi Tc-99m sestamibi IV at peak exercise. A one day-protocol was performed. INDICATIONS: NM resting TECHNIQUE: Radiopharmaceutical was injected at peak stress test, and also at rest. SPECT images were obtained. SPECT myocardial perfusion images were displayed in short axis, horizontal long axis, and vertical long axis views. Gated images were reviewed using [employer] software. COMPARISON: None. CARDIAC STRESS: A standard [place] treadmill exercise tolerance test was performed by the patient under the supervision of an attending staff. The patient exercised for 4 minutes and 30 seconds; functional aerobic impairment (KOLE) is +14%. Hemodynamic data: There is normal blood pressure and heart rate response to exercise stress. Patient achieved 111% of maximum predicted heart rate at peak exercise. Symptoms: Patient denied chest pain during exercise. EKG: Atrial fibrillation with rapid ventricular response present at rest. No diagnostic EKG changes of ischemia during exercise or recovery; frequent PVCs during exercise.. FINDINGS: Raw data: There is good myocardial labeling by radiotracer. No significant motion artifacts. Rvtl-pv-acabn ratio is 0.26 (normal is less than 0.38 for sestamibi tracer, and less than 0.50 for thallium tracer). Left ventricle function: Gated images demonstrate septal dyskinesis. No segmental wall motion abnormality. No transient ischemic dilation; TID is 0.77 (normal less than 1.3). The left ventricle resting end-diastolic volume is 124 mL. Left ventricle stress ejection fraction is 73%; normal values are above 45%. Myocardial perfusion: There is a mildly intense fixed inferior wall and apical defect that is consistent with infarction but artifact can't be excluded as prone imaging were not obtained. No ischemia. IMPRESSION: Abnormal treadmill nuclear stress test consistent with prior infarction. 1) There is a mildly intense fixed inferior wall and apical defect that is consistent with infarction but artifact can't be excluded as prone imaging were not obtained. No ischemia. 2) Normal left ventricular size and systolic function (EF post stress 73%). Septal dyskinesis present. 3) No diagnostic ST changes during exercise or recovery. 4) No angina during the study. 5) Atrial fibrillation with rapid ventricular response present during the entire study. 6) Reduced exercise tolerance (5.4METs, KOLE +14%). 111% of maximum predicted heart rate reached. 7) No prior nuclear stress test available for comparison. Dictated by: Priscilla Murphy MD on 09/15/2024 at 17:18 Approved by: Priscilla Murphy MD on 09/15/2024 at 17:23
== END ==
PROVIDERS: PCP Family Medicine; Referring Provider Internal Medicine Cardiovascular Disease; Visit Provider Internal Medicine Cardiovascular Disease
DX: I47.29 Other ventricular tachycardia (principal); R94.39 Abnormal result of other cardiovascular function study; I48.91 Unspecified atrial fibrillation
CPT/HCPCS: 78452; 93017; A9502

== ENCOUNTER → 2024-11-07 11:46 | Outpatient (CLI) | payer MEDICARE, OTHER, SELFPAY ==
--- NOTE | 2024-11-07 11:50 | DI.CT.S_ITS ---
PROCEDURE: CT CHEST WO CON INDICATIONS: 12 m f/u: 14 millimeter solid nodule in the right upper lobe TECHNIQUE: Noncontrast 5 mm thick sections acquired from the pulmonary apices to the posterior costophrenic angles. 1 mm lung window, 5 mm thick coronal and sagittal and 7 mm axial MIP reformats were then acquired. For radiation dose reduction, the following was used: automated exposure control, adjustment of mA and/or kV according to patient size. COMPARISON: [facility], CT, CT LUNG LOW DOSE SCREENING, 10/07/2023, 13:34. FINDINGS: Image quality: Diagnostic. Lungs and Pleura: Stable 4 mm calcified right upper lobe lung nodule. 6 mm left juxta fissural nodule in the mid lung level, 3/161. A few sub 4 mm ground-glass nodules laterally in the left upper lobe. Mild bilateral bronchial wall thickening in the perihilar regions. No bronchiectasis. No acute ground-glass opacities or consolidations. No pleural effusions or pleural calcifications. Lower Neck: No enlarged lymph nodes. Thyroid: Normal CT appearance. Axillae: No enlarged lymph nodes. Chest Wall: No suspicious chest wall lesions. Bones: Median sternotomy changes. No suspicious bone lesions. Thoracic Vessels: Aortic valvuloplasty. Moderate aortic calcification. Mild ascending aortic aneurysm at 4.3 cm. Normal pulmonary artery caliber. Mediastinum and [place]: No enlarged lymph nodes. Heart: Heart size is normal. No pericardial effusion. Mild coronary calcification. Esophagus: No wall thickening. No hiatal hernia. Upper Abdomen: Visualized upper abdomen solid organs and bowel loops appear normal. IMPRESSION: Stable solid and ground-glass lung nodules measuring 4 mm and less. Benign juxta fissural nodule in the left lung. Bronchial wall thickening suggesting chronic bronchitis. Stable mild ascending aortic aneurysm. Dictated by: Selma So M.D. on 11/09/2024 at 7:35 Approved by: Selma So M.D. on 11/09/2024 at 7:44
== END ==
PROVIDERS: PCP Family Medicine; Referring Provider Family Medicine; Visit Provider Family Medicine
DX: I71.21 Aneurysm of the ascending aorta, without rupture (principal); R91.8 Other nonspecific abnormal finding of lung field; I70.0 Atherosclerosis of aorta; I25.10 Atherosclerotic heart disease of native coronary artery without angina pectoris
CPT/HCPCS: 71250

== ENCOUNTER → 2025-08-23 14:00 | Outpatient (CLI) | payer MEDICARE, OTHER, SELFPAY ==
--- NOTE | 2025-08-23 14:03 | DI.RAD.S_ITS ---
PROCEDURE: XR SHOULDER RT MIN 2V INDICATIONS: intermittent stabbing pain x 2 mos after fall TECHNIQUE: 3 views of the shoulder were acquired. COMPARISON: None. FINDINGS: Bones: No fractures or dislocations. [id number] acromioclavicular joint and glenohumeral joint osteoarthritic changes are seen. No suspicious bony lesions. Visualized ribs appear intact. Soft tissues: No suspicious soft tissue calcifications. IMPRESSION: No acute right shoulder fracture or dislocation. Ebrw-wy-ldquighh right shoulder joint osteoarthritis. Dictated by: Finn Miramontes M.D. on 08/23/2025 at 14:35 Approved by: Finn Miramontes M.D. on 08/23/2025 at 14:36
== END ==
PROVIDERS: PCP Family Medicine; Referring Provider Physician Assistant; Visit Provider Physician Assistant
DX: S49.90XA Unspecified injury of shoulder and upper arm, unspecified arm, initial encounter (principal); M19.011 Primary osteoarthritis, right shoulder; W19.XXXA Unspecified fall, initial encounter
CPT/HCPCS: 73030